=== PATIENT | female | born 1990 | race Caucasian/White ===

== ENCOUNTER 2018-11-05 07:22 | Emergency (ER) | payer MEDICAID, OTHER ==
[~2018-11-05] VITALS: Ht 160 cm; Wt 77.0 kg
[~2018-11-05 07:22] MED LIST: PREN1TAB12
[2018-11-05 07:24] VITALS: BP 134/72; PULSE 62; RESP 16; Ht 160 cm; Wt 77.0 kg
--- NOTE | 2018-11-05 09:35 | ERD ---
ER Documentation Chief Complaint Chief Complaint pt bib self with c/o unable to feel baby move, no real pain HPI 28-year-old female presenting with complaints of not feeling her baby move. Patient is only 15 weeks however she states prior to today's date she did feel the fetus moving. A0. No vaginal bleeding. No pelvic pain. No dysuria. No fevers. No back pain. Denies medical problems. NKDA. Surgical history denies. Social history denies ROS All systems reviewed and are negative except as per history of present illness. Medications Home Meds Reported Medications Vit/Fe Fumarate/Fa ( 1-1 Tablet) 1 Tab Tablet 06/08/10 Allergies Allergies: Coded Allergies: No Known Allergies (Verified Allergy, 12/30/11) PMhx/Soc Medical and Surgical Hx: pt denies Medical Hx, pt denies Surgical Hx History of Surgery: No Hx Neurological Disorder: No Hx Respiratory Disorders: No Hx Cardiac Disorders: No Hx Miscellaneous Medical Probl: No Hx Alcohol Use: No Hx Substance Use: No Hx Tobacco Use: No FmHx Family History: No diabetes, No coronary disease, No other Physical Exam Vitals Vital Signs Date Temp Pulse Resp B/P (MAP) Pulse Ox O2 O2 Flow FiO2 Time Delivery Rate 11/05/18 97.8 62 16 134/72 99 07:24 (92) Physical Exam GENERAL: The patient is well-appearing, well-nourished, in no acute distress CHEST: Clear to auscultation bilaterally. There are no rales, wheezes or rhonchi. HEART: Regular rate and rhythm. No murmurs, clicks, rubs or gallops. No S3 or S4. ABDOMEN:Soft, nontender and nondistended. Good bowel sounds. No rebound or guarding. No gross peritonitis. No gross organomegaly or masses. Results 24 hrs Laboratory Tests Test 11/05/18 08:07 Bedside Urine pH (LAB) 7.0 Bedside Urine Protein (LAB) Negative Bedside Urine Glucose (UA) Negative Bedside Urine Ketones (LAB) Negative Bedside Urine Blood 1+ Bedside Urine Nitrite (LAB) Negative Bedside Urine Leukocyte Esterase (L 1+ Procedures/MDM DIAGNOSTIC IMAGING REPORT Patient: JENNI DACOSTA : 1990 Age: 28 Sex: F MR #: [id number] DOS: 11/05/18 0758 Ordering MD: HAN SUAREZ PA-C Location: FT Room/Bed: PROCEDURE: US OB. CLINICAL INDICATION: Size and dates , decreased movements TECHNIQUE: Multiple sonographic images of the pelvis and gravid uterus were obtained. The images were reviewed on a PACS workstation. COMPARISON: No prior studies are available for comparison. FINDINGS: Gestation: Single live intrauterine gestation. Cardiac activity: 154 beats per minute. Presentation: Variable Placenta: Location: Anterior. Appearance: No previa or abruption. MVP = 4.0 cm Measurements: BPD = 3.0 cm, 15 weeks and 3 days HC = 11.1 cm, 15 weeks and 2 days AC = 9.2 cm, 15 weeks and 3 days FL = 1.4 cm, 14 weeks and 1 day Gestational Age: AUA estimated gestational age: 15 weeks 1 day LMP estimated gestational age: 15 weeks 6 days AUA estimated date of delivery: 04/28/19 The EFW = 108 g, 3.1%ile based on LMP age. The ovaries were not visualized. RPTAT: AA IMPRESSION: Single live intrauterine gestation of 15 weeks 1 day by ultrasound criteria. MDM: 28-year-old female presenting with findings consistent with normal . I have low suspicion for demise as normal fetus is noted on ultrasound. 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 Patient is told if symptoms change or worsen to return immediately to the ER. All questions answered at discharge Departure Diagnosis: Primary Impression: Normal Condition: Stable Patient Instructions: : Common Questions Additional Instructions: FOLLOW UP WITH YOUR PRIMARY CARE PHYSICIAN TOMORROW.Return to this facility if you are not improving as expected. BERNARDO SUAREZ PA-C Nov 05, 2018 09:35
[2018-11-28] MEDS ORDERED: ACET325T33 PO (11:01)
== END 2018-11-05 09:13 | disposition home or self-care (01) ==
LOC: FTE 07:22
DX: O36.8121 Decreased fetal movements, second trimester, fetus 1 (principal); Z3A.15 15 weeks gestation of pregnancy
CPT/HCPCS: 76805; 81003; Z7502

== ENCOUNTER 2019-02-06 20:52 | Outpatient (CLI) | payer OTHER ==
[~2019-02-06] VITALS: Ht 162.6 cm; Wt 78.0 kg
[~2019-02-06 20:52] MED LIST changes: +ACET325T33 PO
[2019-02-06 21:08] VITALS: Ht 162.6 cm; Wt 78.0 kg
--- NOTE | 2019-02-06 23:20 | TRIAGE ---
OB Triage Datetime Report Generated by CPN: 02/06/2019 23:20 Datetime: 02/06/2019 23:17 Stage of : OB Triage Datetime: 02/06/2019 21:15 Vaginal Exam Membrane Status: Intact Datetime: 02/06/2019 21:12 Stage of : OB Triage Assessment Type: Triage Maternal Assessment Level of Consciousness: Fully Conscious Headache: Denies Blurred Vision: No Respiratory Effort: Unlabored; Regular Rhythm; Equal Expansion Nausea/Vomiting: Denies RUQ Epigastric Pain: Denies Facial Edema: None Fall Risk Assessment History of Falling: (0) No Secondary Diagnosis: (0) No Ambulatory Aid: (0) Bedrest/Nurse Assist IV Therapy: (0) No Gait: (0) Normal/Bedrest/Immobile Mental Status: (0) Oriented to Own Ability Fall Score: 0 Fall Risk Score Definition: No Risk: No action required Datetime: 02/06/2019 20:57 Temperature Route: Oral Datetime: 02/06/2019 20:56 Stage of : OB Triage Datetime: 02/06/2019 20:40 Time of Arrival: 02/06/2019 20:40 EGA: 29.1 Arrived By: Wheelchair Arrived From: Home Chief Complaint: VAG PRESSURE SINCE A.M. Movement: Present Contractions: Denies/Absent Rupture of Membranes: Denies Vaginal Bleeding: None Vaginal Discharge: Denies Recent Sexual Intercouse: Denies Abdominal Trauma: Not Applicable Patient Complaints: None Time Provider Notified: 02/06/2019 21:11 Provider Notified: TARAN
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
== END 2019-02-06 23:19 | disposition home or self-care (01) ==
LOC: OBT 20:52 → L-D 20:54 → OBT 23:19
PROVIDERS: ATTEND Obstetrics & Gynecology
DX: O47.03 False labor before 37 completed weeks of gestation, third trimester (principal); O26.893 Other specified pregnancy related conditions, third trimester; R10.2 Pelvic and perineal pain; Z3A.29 29 weeks gestation of pregnancy
CPT/HCPCS: 76815; 76817; 81001; 87086; Z7500; G0463

== ENCOUNTER 2019-02-14 09:07 | Outpatient (CLI) | payer OTHER ==
[~2019-02-14] VITALS: Ht 162.6 cm; Wt 77.0 kg
[~2019-02-14 09:07] MED LIST changes: -ACET325T33 PO
[2019-02-14 09:20] VITALS: Ht 162.6 cm; Wt 77.0 kg
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
== END 2019-02-14 11:50 | disposition home or self-care (01) ==
LOC: L-D 09:07 → OBT 09:07
PROVIDERS: ATTEND Obstetrics & Gynecology
DX: O26.893 Other specified pregnancy related conditions, third trimester (principal); Z3A.30 30 weeks gestation of pregnancy; R10.2 Pelvic and perineal pain
CPT/HCPCS: 76818; 81001; Z7500; 99211; G0463

== ENCOUNTER 2019-04-26 08:00 | Inpatient (IN) | payer OTHER ==
[~2019-04-26] VITALS: Ht 160 cm; Wt 81.2 kg
[2019-04-26 09:05] VITALS: BP 116/68; PULSE 80; RESP 19; Ht 160 cm; Wt 81.2 kg
[2019-04-26] MEDS ORDERED: OXYTOCIN 30 UNITS/LR 500 ML IV SCH ×2 (09:30)
[2019-04-26] MEDS ORDERED: OXYTOCIN 30 UNITS/LR 500 ML IV PRN (09:30)
[2019-04-26] MEDS ORDERED: IBUPROFEN 600 MG TAB PO PRN (09:30)
[2019-04-26] MEDS ORDERED: CARBOPROST 250 MCG INJ IM PRN (09:30)
[2019-04-26] MEDS ORDERED: LIDOCAINE 1% (MPF) 30 ML INJ INJ PRN (09:30)
[2019-04-26] MEDS ORDERED: MISOPROSTOL 200 MCG TAB PR PRN (09:30)
[2019-04-26] MEDS ORDERED: METHYLERGONOVINE 0.2 MG INJ IM PRN (09:30)
[2019-04-26] MEDS ORDERED: BUTORPHANOL 2 MG INJ IV PRN (09:30)
[2019-04-26] MEDS: LACTATED RINGER'S 1,000 ML IV SCH ×3 (09:37→22:48)
[2019-04-26] MEDS: MISOPROSTOL 50 MCG CAPSULE PO SCH ×3 (11:12→19:53)
--- NOTE | 2019-04-26 16:14 | HP ---
Date/Time of Note Date/Time of Note DATE: 04/26/19 TIME: 16:11 OB - History Hx of Present Free Text/Dictation 28 years old 4 para 3-0-0-3 with single intrauterine at 40 weeks and 1 day with a LILI of 04/25/2019 admitted for induction of labor. She states good movement. She denies nausea, vomiting, shortness of breath, chest pain, headache, visual changes, vaginal bleeding or LOF. Chief Complaint: Scheduled for induction of labor for postdate Estimated Due Date: Apr 25, 2019 : 4 Para: 3 Spontaneous : 0 Therapeutic : 0 Care: Good Care Ultrasounds: Normal mid trimester US Obstetrical Complications: None Medical Complications: None Past Family/Social History * Past Medical, Surgical, Family and Obstetric Histories reviewed from chart. Blood Type: O+ Rubella: immune RPR/VDRL: Negative GBS Status: Negative HBsAG: Negative OB Admission Exam Vital Signs Vital Signs Vital Signs Date Temp Pulse Resp B/P (MAP) Pulse Ox O2 O2 Flow FiO2 Time Delivery Rate 04/26/19 98.6 80 19 116/68 Room Air 09:05 (84) Physical Exam HEENT: WNL Heart: Rhythm Normal Lungs: Clear Abdomen: WNL Extremities: Normal Reflexes: Normal Cervical Dilatation: Fingertip Effacement: 25% Station: -3 Membranes: Intact Heart Rate: 130's Accelerations: Accelerations Present Decelerations: No Decelerations Varibility: Moderate Contractions on Admission: >10 Minutes Apart Intensity: Mild Last 72 hours Lab Results CBC & BMP 04/26/19 09:40 OB Assessment/Plan Other plan: 28 years old -0-0-3 with single intrauterine at 40 weeks and 1 day admitted for induction of labor -FHR: No sign of metabolic acidosis- Category I -Continuous EFM, toco -CBC, blood type and screen -Cytotec for induction of labor per protocol -Analgesia options with R/B/A discussed in detail with patient -Epidural per patient request -Please see the orders -O+/Rubella: Immune -GBS: Negative Admission, procedures, expectations, risks and possible complications have been discussed in detail with the patient. Risk of vaginal delivery including but not limited to bleeding, infection, cervical laceration, placental retention, injury to fetus, blood transfusion, blood transfusion related infection, risk of anesthesia, adhesion, cervical laceration, episiotomy/laceration, possible delivery with risk of bleeding, infection, injury to other organs (bowel, bladder, ureter, vessels, nerves), injury to fetus, blood transfusion, blood transfusion related infection, risk of anesthesia, scar and hernia forma tion, needs for future , removal of uterus or any other indicated surgery discussed with the patient. She expressed understanding and repeats the risks. All of her questions were answered. She signed the informed consent. PHYSICIAN'S VERIFICATION OF INFORMED CONSENT The patient was counseled regarding the procedure, its indications, risks, potential complications and alternatives and any questions were answered. Consent was obtained. PLANNED PROCEDURE/TREATMENT: Vaginal delivery, episiotomy, repair of laceration possible delivery JAIMEE CHIRINOS Apr 26, 2019 16:14
[2019-04-27] MEDS ORDERED: OXYTOCIN 30 UNITS/LR 500 ML IV SCH ×2 (00:30→08:03)
--- NOTE | 2019-04-27 07:41 | LDN ---
Date/Time of Note Date/Time of Note DATE: 04/27/19 TIME: 07:37 Delivery Summary 04/27/2019 Weeks of Gestation 40 weeks Placenta Delivered: Spontaneously Meconium: none Episiotomy: No Indication for episiotomy N/A Perineal laceration: 0 Laceration repair: None Anesthesia type: Epidural Estimated blood loss: 200 Sponge & Needle done & correct: Yes All needle counts correct: Yes Any foreign bodies felt in the: No Delivery Information Sex Infant Sex: male Apgars 1 Minute: 8 5 Minute: 9 Suctioning Nose & mouth suctioned at juliann: Yes Delee suction performed: Yes Umbilical Cord Umbilical cord with: 3 Vessels Cord presentations: no nuchal cord Cord Blood was obtained: Yes Mother & Baby Disposition Disposition Baby to NICU: No AURY ELLIS MD Apr 27, 2019 07:40
[2019-04-27 07:55] VITALS: BP 105/59; PULSE 84; RESP 18
[2019-04-27] MEDS: IBUPROFEN 600 MG TAB PO SCH ×4 (08:28→23:50)
[2019-04-27] MEDS ORDERED: ONDANSETRON 4 MG INJ IV PRN (08:30)
[2019-04-27] MEDS ORDERED: MISOPROSTOL 200 MCG TAB PR PRN (08:30)
[2019-04-27] MEDS ORDERED: ZOLPIDEM 5 MG TAB PO PRN (08:30)
[2019-04-27] MEDS ORDERED: DIPHENHYDRAMINE 25 MG CAP PO PRN (08:30)
[2019-04-27] MEDS ORDERED: CARBOPROST 250 MCG INJ IM PRN (08:30)
[2019-04-27] MEDS ORDERED: OXYTOCIN 30 UNITS/LR 500 ML IV PRN (08:30)
[2019-04-27] MEDS ORDERED: WITCH HAZEL/GLYCERIN PAD PR PRN (08:30)
[2019-04-27] MEDS ORDERED: NACL 0.9% 3 ML SYG IV SCH (08:30)
[2019-04-27] MEDS ORDERED: LANOLIN HPA 1 PKT TOP PRN (08:30)
[2019-04-27] MEDS ORDERED: morphine 2 MG INJ IV PRN (08:30)
[2019-04-27] MEDS ORDERED: HYDROCODONE/APAP (5/325) TAB PO PRN (08:30)
[2019-04-27] MEDS: SENNA/DOCUSATE NA (8.6MG/50MG) TAB PO SCH ×2 (09:00→21:00)
[2019-04-27 15:57] VITALS: BP 99/65; PULSE 67; RESP 18
[2019-04-27 20:00] VITALS: BP 100/53; PULSE 64; RESP 18
[2019-04-28 04:18] VITALS: BP 93/59; PULSE 76; RESP 18
[2019-04-28] MEDS: IBUPROFEN 600 MG TAB PO SCH ×2 (05:46→12:46)
[2019-04-28 08:00] VITALS: BP 97/64; PULSE 63; RESP 18
[2019-04-28] MEDS: SENNA/DOCUSATE NA (8.6MG/50MG) TAB PO SCH (08:42)
--- NOTE | 2019-04-28 11:46 | QN ---
Documentation Comment PPD# 1 is stable NO VB +BM +voids Gen NAD Abd soft NT ND Genitalia No blood at perineum -->Discharge home --->Precaution discussed TIERNEY VITALE M.D. Apr 28, 2019 11:46
--- NOTE | 2019-04-28 11:47 | DS ---
Date/Time of Note Date/Time of Note DATE: 04/28/19 TIME: 11:47 Discharge Summary Admission/Discharge Info Admit Date/Time Apr 26, 2019 at 08:31 Discharge Date/Time 04/28/2019 Discharge Diagnosis Patient Condition: Good Hospital Course uneventful Home Meds Reported Medications Vit/Fe Fumarate/Fa ( 1-1 Tablet) 1 Tab Tablet 06/08/10 Primary Care Provider Dylan Christie Pending Labs Laboratory Tests Test 04/28/19 06:43 04/28/19 09:15 Lab Scanned Report REFERENCE LAB [id number] White Blood Count 11.4 10^3/ul (4.8-10.8) Red Blood Count 4.37 10^6/ul (4.20-5.40) Hemoglobin 12.5 g/dl (12.0-16.0) Hematocrit 36.9 % (37.0-47.0) Mean Corpuscular Volume 84.4 fl (82.0-101.0) Mean Corpuscular Hemoglobin 28.6 pg (29.0-33.0) Mean Corpuscular 33.9 g/dl (32.0-37.0) Hemoglobin Concent Red Cell Distribution Width 13.5 % (11.5-14.5) Platelet Count 206 10^3/UL (140-415) Mean Platelet Volume 10.8 fl (7.4-10.4) Immature Granulocytes % 0.400 % (0.001-0.429) Neutrophils % 71.7 % (39.0-77.0) Lymphocytes % 21.0 % (15.0-51.0) Monocytes % 5.2 % (0.0-11.0) Eosinophils % 1.2 % (0.0-7.0) Basophils % 0.5 % (0.0-2.0) Nucleated Red Blood Cells % 0.0 /100WBC (0.0-0.0) Immature Granulocytes # 0.050 10^3/ul (0.0-0.031) Neutrophils # 8.2 10^3/ul (1.6-7.5) Lymphocytes # 2.4 10^3/ul (0.8-2.9) Monocytes # 0.6 10^3/ul (0.3-0.9) Eosinophils # 0.1 10^3/ul (0.0-0.5) Basophils # 0.1 10^3/ul (0.0-0.1) Nucleated Red Blood Cells # 0.0 10^3/ul (0.0-0.0) TIERNEY VIATLE M.D. Apr 28, 2019 11:47
[2019-04-29] MEDS ORDERED: VARICELLA VACCINE LIVE/PF 1,350 UNIT/0.5 ML ML SC* ONE (09:00)
[2019-04-29] MEDS ORDERED: DIPHTH/TET/ACEL PERTUSS (ADULT) 0.5 ML VIAL IM* ONE (09:00)
[2019-04-29] MEDS ORDERED: MEASLES,MUMPS,RUBELLA VACCINE INJ SC* ONE (09:00)
--- NOTE | 2019-04-29 14:26 | DELSUM ---
Delivery Summary A-C Datetime Report Generated by CPN: 04/29/2019 14:26 DELIVERY PERSONNEL Merchant Banker: Susanne Kelly MATERNAL INFORMATION Delivery Anesthesia: None Medications in Delivery: Pitocin 30 units in LR Delivery QBL (ml): 200 Placenta Cultured: No Maternal Complications: None LABOR SUMMARY EDC: 04/23/2019 00:00 No. Babies in Womb: 1 Attempted: No Labor Anesthesia: None LABOR INFORMATION Reason for Induction: Postterm Onset of Labor: 04/27/2019 00:07 Complete Dilatation: 04/27/2019 05:13 Cervical Ripening Agents: Cytotec @ 50mcg Oxytocin: Augmentation Group B Beta Strep: Negative Antibiotics # of Doses: 0 Steroids Given: None Reason Steroids Not Administered: Not Applicable MEMBRANES Membranes Rupture Method: Artificial Rupture of Membranes: 04/27/2019 05:15 Length of Rupture (hr): 0.03 Amniotic Fluid Color: Clear Amniotic Fluid Amount: Moderate Amniotic Fluid Odor: None STAGES OF LABOR Stage 1 hr: 5 Stage 1 min: 6 Stage 2 hr: 0 Stage 2 min: 4 Stage 3 hr: 0 Stage 3 min: 2 Total Time in Labor hr: 5 Total Time in Labor min: 12 VAGINAL DELIVERY Episiotomy: None Laceration Extension: N/A Laceration Type: None Laceration Repair: Not Applicable Initial Vag Sponge Count: 10 Final Vag Sponge Count: 10 Initial Vag Sharps Count: 1 Final Vag Sharps Count: 1 Sponge Count Correct: Yes; Vaginal Sweep Performed Sharps Count Correct: Yes BABY A INFORMATION Delivery Date/Time: 04/27/2019 05:17 Method of Delivery: Vaginal Born in Route : No : N/A Forceps: N/A Vacuum Extraction: N/A Shoulder Dystocia : N/A SHOULDER DYSTOCIA BABY A Infant Delivery Date/Time: 04/27/2019 05:17 PRESENTATION/POSITION BABY A Presentation: Cephalic Cephalic Presentation: Vertex Vertex Position: Left Occipital Anterior Breech Presentation: N/A PLACENTA INFORMATION BABY A Placenta Delivery Time : 04/27/2019 05:19 Placenta Method of Delivery: Spontaneous Placenta Status: Delivered SCORES BABY A Heart Rate 1 min: >100 bpm Resp Effort 1 min: Good Cry Reflex Irritability 1 min: Cough/Sneeze/Pulls Away Muscle Tone 1 min: Active Motion Color 1 min: Blue/Pale Resuscitation Effort 1 min: Tactile Stimulation SCORE 1 MIN: 8 Heart Rate 5 min: >100 bpm Resp Effort 5 min: Good Cry Reflex Irritability 5 min: Cough/Sneeze/Pulls Away Muscle Tone 5 min: Active Motion Color 5 min: Body Bandana, Extremit Blue Resuscitation Effort 5 min: Tactile Stimulation SCORE 5 MIN: 9 INFORMATION BABY A Gestational Age at Delivery: 40.4 Gestational Status: Full Term- 39- 40.6 Weeks Infant Outcome : Liveborn, with signs of life Condition : Stable Infant Sex: Male IDENTIFICATION/MEDS BABY A ID Band Number: [id number] ID Band Location: Right Leg; Left Arm Sensor Applied: Yes Sensor Number: [id number] Sensor Location : Cord Clamp Vitamin K Given : Not Given Erythromycin Given: Not Given WEIGHT/LENGTH BABY A Birthweight (gm): 3390 Infant Weight (lb): 7 Weight (oz): 8 Length (in): 19.50 Length (cm): 49.53 CORD INFORMATION BABY A No. Cord Vessels: 3 Nuchal Cord : N/A Cord Blood Taken: No Suction: Mouth; Nose ASSESSMENT BABY A Complications: None Physical Findings at Delivery: Within Normal Limits Infant Respirations: Appears Normal Approver/ALS Called : No Infant Care By: Essie Grace Transferred To: Remains with Mother
== END 2019-04-28 14:25 | disposition home or self-care (01) | DRG 807 ==
LOC: L-D 08:31 → PP1 04-27 07:50
PROVIDERS: ADMIT Obstetrics & Gynecology; ATTEND Obstetrics & Gynecology
PROC: 4A1HXCZ Monitoring of Products of Conception, Cardiac Rate, External Approach (ICD-10-PCS; 2019-04-26)
PROC: 3E0P7GC Introduction of Other Therapeutic Substance into Female Reproductive, Via Natural or Artificial Opening (ICD-10-PCS; 2019-04-26)
PROC: 10E0XZZ Delivery of Products of Conception, External Approach (ICD-10-PCS; principal; 2019-04-27)
PROC: 3E0234Z Introduction of Serum, Toxoid and Vaccine into Muscle, Percutaneous Approach (ICD-10-PCS; 2019-04-28)
DX: O48.0 Post-term pregnancy (principal); Z37.0 Single live birth; Z3A.40 40 weeks gestation of pregnancy; Z23 Encounter for immunization
CPT/HCPCS: 76815; 85025; 85610; 85730; 86592; 86850; 86900; 86901; 87340; J2590; J7120